=== PATIENT | female | born 1965 | race Caucasian/White ===

== ENCOUNTER 2017-07-30 21:10 | Inpatient (IN) | payer OTHER ==
[~2017-07-30] VITALS: Ht 167.6 cm; Wt 119.6 kg
[~2017-07-30 21:10] MED LIST: CENTRUM SILVER1 EAC4 PO; IBUPROFEN800 MG PO; IRON325 M1 PO; LITE COAT ASPI325 M1 PO
[2017-07-31 06:35] VITALS: BP 133/77
[2017-07-31 11:20] VITALS: BP 137/84
[2017-07-31 17:27] VITALS: BP 123/71
[2017-07-31 20:11] VITALS: BP 136/59
[2017-07-31 23:34] VITALS: BP 125/66
[2017-08-01 04:26] VITALS: BP 131/70
[2017-08-01 07:38] VITALS: BP 142/68
[2017-08-01] MEDS ORDERED: OXYCODONE HCL5 MG PO (09:12)
[2017-08-01] MEDS ORDERED: ELIQUIS2.5 MG PO (09:12)
[2017-08-01 12:26] VITALS: BP 130/68
[2017-08-01 15:49] VITALS: BP 137/63
[2017-08-01 20:08] VITALS: BP 136/78
[2017-08-01 23:30] VITALS: BP 130/64
[2017-08-02 08:17] VITALS: BP 131/76
== END 2017-08-02 13:26 | DRG 470 ==
LOC: ENRESERV 21:10 → 2SOUTH 07-31 05:04 → 3EAST 07-31 05:04 → ENRESERV 07-31 07:57 → 2SOUTH 07-31 10:31 → 3EAST 07-31 11:11 → 2SOUTH 07-31 11:18 → 3EAST 08-02 13:26
PROC: 0SRD0J9 Replacement of Left Knee Joint with Synthetic Substitute, Cemented, Open Approach (ICD-10-PCS; principal; 2017-07-31)
DX: M17.12 Unilateral primary osteoarthritis, left knee (principal); M06.9 Rheumatoid arthritis, unspecified; Z86.718 Personal history of other venous thrombosis and embolism; Z87.891 Personal history of nicotine dependence
CPT/HCPCS: 36415; 86850; 86900; 86901; 97530 GP; C1713; J0690; J1100; J1885; J2250; J2405; J2795; J3010; J7050; J7120; L1820; S0020